=== PATIENT | female | born 1955 | race Caucasian/White ===

== ENCOUNTER 2022-11-18 00:49 | Emergency (ER) | payer OTHER ==
[~2022-11-18] VITALS: Ht 157.5 cm; Wt 63.5 kg
[2022-11-18 01:08] VITALS: BP 145/70; PULSE 66; RESP 16; TEMP 96.7; O2SAT 96
[2022-11-18 04:30] VITALS: O2SAT 96
[2022-11-18] MEDS ORDERED: MORPHINE SULFATE 4 MG/ML SYR IM ONE (04:35)
[2022-11-18] MEDS ORDERED: KETOROLAC 60 MG/2 ML VIAL IM ONE (04:35)
[2022-11-18] MEDS ORDERED: NAPR-54 PO (05:43)
== END 2022-11-18 05:50 | disposition home or self-care (01) ==
LOC: MED 00:49
DX: S33.5XXA Sprain of ligaments of lumbar spine, initial encounter (principal); I10 Essential (primary) hypertension; Z79.899 Other long term (current) drug therapy; Z88.0 Allergy status to penicillin; X58.XXXA Exposure to other specified factors, initial encounter; Y93.89 Activity, other specified; Y92.89 Other specified places as the place of occurrence of the external cause; Y99.8 Other external cause status
CPT/HCPCS: 96372; 99284; J1885; J2270